=== PATIENT | female | born 1975 | race Caucasian/White ===

== ENCOUNTER 2016-03-22 18:54 | Emergency (ER) | payer OTHER ==
[~2016-03-22] VITALS: Ht 162.6 cm; Wt 85.2 kg
[~2016-03-22 18:54] MED LIST: CIPRO500 MG PO; PHENERGAN-CODE120 ML PO; SYNTHROID125 MCG PO; TAMIFLU75 MG PO; TYLENOL WITH C1 EACH PO; ZITHROMAX250 MG PO; ZOFRAN ODT4 MG PO
[2016-03-22 19:34] LABS: HEMATOCRIT 34.5 % (36.0-46.0); MCH 26.9 PG (29.0-34.0); MCHC 33.6 G/DL (30.0-36.0); MCV 79.9 FL (83-99); MEAN PLAT.VOLUME 9.6 uM^3 (9.5-12.4); PLATELET COUNT 261 K/uL (156-360); RBC DIS.WIDTH-CV 13.5 % (11.8-14.6); RBC DIS.WIDTH-SD 37.8 % (39-53); RED BLOOD COUNT 4.32 M/uL (3.80-5.20); WHITE BLOOD COUNT 5.8 K/uL (4.1-10.2)
[2016-03-22 19:42] LABS: CHLORIDE 106 mEq/L (99-109); POTASSIUM 3.6 mEq/L (3.7-5.4); SODIUM 137 mEq/L (136-147)
[2016-03-22 19:44] LABS: GLUCOSE 112 mg/dL (70-99)
[2016-03-22 19:45] LABS: ANION GAP 11 MEQ/L (2-14)
[2016-03-22 19:48] LABS: GFR ESTIMATE (CALCULATED) > 59 mL/min/
[2016-03-22 19:49] LABS: UREA NITROGEN (BUN) 12 mg/dL (9-23)
[2016-03-22 19:54] LABS: TROP-I INTERPRETATION NEGATIVE; TROPONIN-I < 0.01 ng/mL (0.0-0.30)
[2016-03-22] MEDS ORDERED: MEDROL DOSEPAK4 MG PO (21:12)
[2016-03-22] MEDS ORDERED: VENTOLIN HFA18 GM IH (21:12)
[2016-03-22 21:29] VITALS: BP 157/103
== END 2016-03-22 21:33 | disposition home or self-care (01) ==
LOC: RME 18:54 → EME 18:54 → RME 21:33
DX: J06.9 Acute upper respiratory infection, unspecified (principal); J98.01 Acute bronchospasm; R00.0 Tachycardia, unspecified; J45.909 Unspecified asthma, uncomplicated; E03.9 Hypothyroidism, unspecified; Z87.891 Personal history of nicotine dependence
CPT/HCPCS: 71020; 80048; 84484; 85027; 93005; 94640; 99281; 99284

== ENCOUNTER 2016-09-25 13:16 | Emergency (ER) | payer OTHER ==
[~2016-09-25] VITALS: Ht 162.6 cm; Wt 83.5 kg
[~2016-09-25 13:16] MED LIST changes: +MEDROL DOSEPAK4 MG PO; +VENTOLIN HFA18 GM IH
[2016-09-25 15:50] VITALS: BP 124/79
== END 2016-09-25 16:00 | disposition left against medical advice (07) ==
LOC: EME 13:16
DX: R07.81 Pleurodynia (principal); R06.02 Shortness of breath; Z53.21 Procedure and treatment not carried out due to patient leaving prior to being seen by health care provider
CPT/HCPCS: 71020; 93005

== ENCOUNTER 2016-11-26 20:03 | Emergency (ER) | payer OTHER ==
[~2016-11-26] VITALS: Ht 162.6 cm; Wt 78.1 kg
[2016-11-26 20:23] LABS: POINT-OF-CARE METER ID UU13113778
[2016-11-26 20:33] VITALS: BP 127/85
== END 2016-11-26 22:30 | disposition left against medical advice (07) ==
LOC: EME 20:03
DX: R00.2 Palpitations (principal); Z53.21 Procedure and treatment not carried out due to patient leaving prior to being seen by health care provider
CPT/HCPCS: 80053; 81003; 82948; 84702; 85027; 93005

== ENCOUNTER 2017-02-09 14:44 | Emergency (ER) | payer OTHER ==
[~2017-02-09] VITALS: Ht 162.6 cm; Wt 79.2 kg
[2017-02-09 15:09] LABS: HEMATOCRIT 37.9 % (36.0-46.0); MCH 26.2 PG (29.0-34.0); MCHC 32.2 G/DL (30.0-36.0); MCV 81.3 FL (83-99); MEAN PLAT.VOLUME 9.6 uM^3 (9.5-12.4); PLATELET COUNT 316 K/uL (156-360); RBC DIS.WIDTH-CV 13.6 % (11.8-14.6); RBC DIS.WIDTH-SD 39.8 % (39-53); RED BLOOD COUNT 4.66 M/uL (3.80-5.20); WHITE BLOOD COUNT 6.7 K/uL (4.1-10.2)
[2017-02-09 15:19] LABS: CHLORIDE 106 mEq/L (99-109); SODIUM 138 mEq/L (136-147)
[2017-02-09 15:21] LABS: GLUCOSE 88 mg/dL (70-99)
[2017-02-09 15:23] LABS: ANION GAP 10 MEQ/L (2-14); TOTAL BILIRUBIN 0.2 mg/dL (0.0-1.0)
[2017-02-09 15:25] LABS: ALKALINE PHOSPHATASE 99 IU/L (3-129); GFR ESTIMATE (CALCULATED) > 59 mL/min/
[2017-02-09 15:26] LABS: UREA NITROGEN (BUN) 9 mg/dL (9-23)
[2017-02-09 15:35] LABS: QUANTITATIVE HCG < 4.0 MIU/ML
[2017-02-09 15:45] LABS: ADD MIUA? YES; BILIRUBIN NEGATIVE; BLOOD NEGATIVE; COLOR YELLOW ((YELLOW)); GLUCOSE (STRIP) NEGATIVE; KETONES NEGATIVE; LEUKOCYTES NEGATIVE; NITRITE NEGATIVE; PROTEIN (STRIP) NEGATIVE; SPECIFIC GRAVITY 1.024 (1.000-1.030)
[2017-02-09 15:46] LABS: BACTERIA NONE SEEN /HPF; EPITHELIAL CELLS RARE /HPF; MUCUS 1+ /LPF; RED BLOOD CELLS 0-5 /HPF (0-5); UCUL ADDED? NO; WHITE BLOOD CELLS 0-5 /HPF (0-5)
[2017-02-09 16:57] LABS: D-DIMER ELISA < 150.00 ng/mLDDU (<230)
[2017-02-09 17:00] LABS: SERUM ETHYL ALCOHOL < 10 mg/dL
[2017-02-09 17:03] LABS: LIPASE 52 U/L (1.0-51.0)
[2017-02-09] MEDS ORDERED: MOTRIN800 MG PO (18:05)
[2017-02-09] MEDS ORDERED: MIRALAX255 GM PO (18:05)
[2017-02-09] MEDS ORDERED: PROAIR HFA8.5 GM IH (18:38)
[2017-02-09 18:41] VITALS: BP 111/59
== END 2017-02-09 18:44 | disposition home or self-care (01) ==
LOC: EME 14:44
DX: R10.12 Left upper quadrant pain (principal); K59.00 Constipation, unspecified; J45.909 Unspecified asthma, uncomplicated; E78.5 Hyperlipidemia, unspecified; Z72.0 Tobacco use; Z88.6 Allergy status to analgesic agent; Z88.0 Allergy status to penicillin
CPT/HCPCS: 71020; 74176; 80053; 81003; 83690; 84702; 85027; 85379; 99281; 99285; G0480; J1885; J2405; J3010; J7030